=== PATIENT | male | born 1950 | race Caucasian/White ===

== ENCOUNTER 2018-02-20 16:07 | Emergency (ER) | payer OTHER, MEDICARE ==
[~2018-02-20] VITALS: Ht 177.8 cm; Wt 120.0 kg
[~2018-02-20 16:07] MED LIST: ALBUTEROL SUL0.083 % IN; ANDRODERM4 MG/24 HR TD; ASMANEX 60220 MCG IN; AVELOX400 MG PO; BUSPIRONE5 MG PO; CA CITRATE250 MG PO; CHLORHEX GLU0.12 % MT; CIPROFLOXACN500 MG PO; CLONAZEPAM0.5 MG PO; COMBIVENT RESPIMAT IN; D3-10001000 UNIT PO; DOCUSATE SOD100 M2 PO; ENTERIC COATED325 MG PO; FEXOFENADINE180 MG PO; FLUNISOLIDE; GNP LANSOPRAZOL15 MG PO; HYDROCO/APAP1 T11 PO; IPRATROPIU0.5 MG/3 M IN; KLOR-CON M2020 MEQ PO; LISINOPRIL20 MG PO; LOVASTATIN40 MG PO; LYRICA150 MG PO; MEDDOSEPAK PO; METFORMIN500 MG PO; METHYLPHENID10 M1 PO; METHYLPHENIDATE10 MG PO; MINIPRESS5 MG PO; MIRTAZAPINE15 MG PO; MULTI VIT PO; MULTIVITAMI9 PO; RANITIDINE 150150 MG PO; ROPINIROLE0.5 MG PO; SALSALATE500 MG PO; SENNA-TABS8.6 MG PO; SINGULAIR10 MG PO; TOPIRAMATE100 MG PO; TRAMADOL HCL50 MG PO; VITAMIN B-12500 MCG PO; [UNRECOGNIZED DRUG - OTHER] PO
[2018-02-20] MEDS ORDERED: CARB/LEVO SR1 TAB PO (16:27)
[2018-02-20] MEDS ORDERED: LANTUS100 UNIT/M SC (16:28)
[2018-02-20] MEDS ORDERED: NOVOLOG100 UNIT/M (16:29)
[2018-02-20 17:27] LABS: HEMATOCRIT 42.2 % (39.0-50.0); HEMOGLOBIN 14.2 g/dl (14.0-18.0); IMMATURE GRANULOCYTES 0.3 % (0.0-1.0); MEAN CELL VOLUME 91.7 fL CALC (80.0-100.0); MEAN CORPUSCULAR HGB 30.9 pG CALC (26.0-32.0); MEAN CORPUSCULAR HGB CONC 33.6 g/L CALC (32.0-36.0); NEUT# 4.39 thou/uL (1.82-7.42); RED BLOOD COUNT 4.6 mill/uL (4.70-6.10); RED CELL DISTRI WIDTH 13.7 % (11.5-15.5)
[2018-02-20 17:28] LABS: URINE BLOOD DIPSTICK NEGATIVE (NEGATIVE); URINE COLOR YELLOW; URINE GLUCOSE - DIPSTICK NEGATIVE (NEGATIVE); URINE KETONE NEGATIVE (NEGATIVE); URINE LEUK ESTERASE NEGATIVE (NEGATIVE); URINE NITRITE - DIPSTICK NEGATIVE (Negative); URINE PROTEIN - DIPSTICK NEGATIVE (NEG-TRACE); URINE UROBILINOGEN - DIPSTICK 0.2 E.U./dL (0.2)
[2018-02-20 17:30] LABS: URINE BILIRUBIN - DIPSTICK NEGATIVE (NEGATIVE); URINE CLARITY CLEAR
[2018-02-20 17:47] LABS: ALKALINE PHOSPHATASE 46 u/l (38-126); ANION GAP 21 (6-22 (CALC)); BILIRUBIN, TOTAL 0.4 mg/dL (0.0-1.4); BUN 14 mg/dL (8-23); BUN/CREATININE RATIO 18 (12-20 (CALC)); CARBON DIOXIDE 21 mmol/l (22-30); CHLORIDE 103 mmol/l (95-108); CREATININE 0.8 mg/dL (0.7-1.3); GFR > 60 ML/MIN (>=60 (CALC)); GFR FOR AFR.AMER. > 60 ML/MIN (>=60 (CALC)); POTASSIUM 4.5 mmol/l (3.5-5.1); SGPT/ALT 31 u/l (11-66); SODIUM 141 mmol/l (137-146)
[2018-02-20 17:49] LABS: ALBUMIN 4.5 g/dL (3.2-5.0); SGOT/AST 35 u/l (19-48); TOTAL PROTEIN 7.7 g/dL (6.3-8.2)
[2018-02-20] MEDS ORDERED: FLEXERIL PO (18:00)
[2018-02-20] MEDS ORDERED: MEDDOSEPAK PO (18:00)
[2018-02-20] MEDS ORDERED: TORADOL PO (18:00)
[2018-02-20 18:06] VITALS: BP 153/93
== END 2018-02-20 18:14 | disposition home or self-care (01) | DRG 563 ==
LOC: ED 16:07
PROVIDERS: Emergency Medicine
DX: S39.012A Strain of muscle, fascia and tendon of lower back, initial encounter (principal); E11.40 Type 2 diabetes mellitus with diabetic neuropathy, unspecified; G20 Parkinson's disease; J44.9 Chronic obstructive pulmonary disease, unspecified; F43.10 Post-traumatic stress disorder, unspecified; X58.XXXA Exposure to other specified factors, initial encounter

== ENCOUNTER 2019-01-24 18:49 | Emergency (ER) | payer OTHER, MEDICARE ==
[~2019-01-24 18:49] MED LIST changes: +CARB/LEVO SR1 TAB PO; +FLEXERIL PO; +LANTUS100 UNIT/M SC; +NOVOLOG100 UNIT/M; +TORADOL PO
== END 2019-01-24 19:14 | disposition left against medical advice (07) | DRG 951 ==
LOC: ED 18:49 → LWOBS 19:13
DX: Z91.19 Patient's noncompliance with other medical treatment and regimen (principal)

== ENCOUNTER 2023-01-01 11:10 | Emergency (ER) | payer OTHER, MEDICARE ==
[~2023-01-01] VITALS: Ht 177.8 cm; Wt 113.3 kg
[2023-01-01 11:21] VITALS: BP 135/79
[2023-01-01 11:44] LABS: BASO% 0.6 % (0-3); EOS% 1.4 % (0-8); IMMATURE GRANULOCYTES 0.1 % (0.0-5.0); LYMPH% 20.3 % (15-41); MEAN CELL VOLUME 91.2 fL CALC (80.0-100.0); MEAN CORPUSCULAR HGB 29.8 pG CALC (26.0-32.0); MEAN CORPUSCULAR HGB CONC 32.7 g/dL CAL (32.0-36.0); MONO% 9.4 % (2-13); NEUT# 4.88 thou/uL (1.82-7.42); NEUT% 68.2 % (42-76); RED BLOOD COUNT 3.96 mill/uL (4.70-6.10); RED CELL DISTRI WIDTH 14.6 % (11.5-15.5)
[2023-01-01 11:52] LABS: ALBUMIN 4.1 g/dL (3.2-5.0); ANION GAP 11 (6-22 (CALC)); BILIRUBIN, TOTAL 0.5 mg/dL (0.2-1.3); BUN 22 mg/dL (8-23); BUN/CREATININE RATIO 31 (12-20 (CALC)); CARBON DIOXIDE 22 mmol/l (22-30); CHLORIDE 110 mmol/l (95-108); CREATININE 0.7 mg/dL (0.7-1.3); GFR FOR AFR.AMER. > 60 ML/MIN (>=60 (CALC)); GFR OTHER RACES > 60 ML/MIN (>=60 (CALC)); POTASSIUM 3.6 mmol/l (3.5-5.1); SGOT/AST 20 u/l (19-48); SODIUM 140 mmol/l (137-146); TOTAL PROTEIN 6.8 g/dL (6.3-8.2)
[2023-01-01 11:56] LABS: ALKALINE PHOSPHATASE 85 u/l (38-126)
[2023-01-01 11:57] LABS: HEMATOCRIT 36.1 % (39.0-50.0); HEMOGLOBIN 11.8 g/dl (14.0-18.0)
[2023-01-01] MEDS ORDERED: CEPHALEXIN500 M1 PO (12:40)
[2023-01-01 12:52] VITALS: BP 135/79
== END 2023-01-01 12:56 | disposition home or self-care (01) | DRG 603 ==
LOC: ED 11:10
PROVIDERS: Family Medicine
DX: L03.116 Cellulitis of left lower limb (principal); E11.40 Type 2 diabetes mellitus with diabetic neuropathy, unspecified; J44.9 Chronic obstructive pulmonary disease, unspecified; G20 Parkinson's disease; Z99.81 Dependence on supplemental oxygen; Z79.4 Long term (current) use of insulin; Z79.01 Long term (current) use of anticoagulants